=== PATIENT | female | born 1955 | race Caucasian/White ===

== ENCOUNTER 2023-08-07 12:12 | Emergency (ER) | payer OTHER ==
[~2023-08-07] VITALS: Ht 152.4 cm; Wt 65.8 kg
[2023-08-07] MEDS ORDERED: MORPHINE 4 MG INJ. 4 MG/ML VIAL IM ONE (12:30)
[2023-08-07 12:31] VITALS: BP_SYST 143; PULSE 93; RESP 16; TEMP 98.1; O2SAT 95
[2023-08-07] MEDS ORDERED: IBUP-1969 PO (14:12)
[2023-08-07] MEDS ORDERED: TRAM50TA2 PO (14:12)
[2023-08-07 19:35] VITALS: BP_SYST 143; PULSE 93; RESP 16; TEMP 98.1; O2SAT 95
== END 2023-08-07 19:35 | disposition home or self-care (01) ==
LOC: SED 12:12
DX: S83.91XA Sprain of unspecified site of right knee, initial encounter (principal); S33.5XXA Sprain of ligaments of lumbar spine, initial encounter; S70.01XA Contusion of right hip, initial encounter; W18.39XA Other fall on same level, initial encounter; Y93.89 Activity, other specified; Y92.89 Other specified places as the place of occurrence of the external cause; Y99.8 Other external cause status
CPT/HCPCS: 99284; 72100; 72170; 73564; 96372; J2270

== ENCOUNTER 2024-02-04 12:36 | Inpatient (IN) | payer OTHER ==
[~2024-02-04] VITALS: Ht 152.4 cm; Wt 56.2 kg
[~2024-02-04 12:36] MED LIST: IBUP-1969 PO; TRAM50TA2 PO
[2024-02-04 12:49] VITALS: BP_SYST 175; PULSE 77; RESP 18; TEMP 99.2; O2SAT 98
[2024-02-04 13:20] LABS: BASOPHILS # (AUTO) 0.1 K/uL (0.0-0.2); BASOPHILS % (AUTO) 0.5 % (0.0-2.0); EOSINOPHILS # (AUTO) 0.1 K/uL (0.0-0.4); EOSINOPHILS % (AUTO) 0.5 % (0.0-4.0); HEMATOCRIT 45.2 % (36-48); HEMOGLOBIN 15.2 g/dL (12.0-16.0); LYMPHOCYTES % (AUTO) 15.8 % (20.5-51.5); MEAN CORPUSCULAR HEMOGLOBIN 29 pg (27-31); MEAN CORPUSCULAR HGB CONC 34 % (32-36); MEAN CORPUSCULAR VOLUME 86 fL (79.0-98.0); MONOCYTES # (AUTO) 1.1 K/uL (0.0-1.0); MONOCYTES % (AUTO) 8.5 % (1.7-9.3); NEUTROPHILS # (AUTO) 9.3 K/uL (1.8-7.7); NEUTROPHILS % (AUTO) 74.7 % (40.0-70.0); PLATELET COUNT (AUTO) 264 K/uL (130-430); RED BLOOD CELL COUNT(AUTO) 5.27 MIL/uL (4.2-6.2); RED CELL DISTRIBUTION WIDTH 13.9 % (9.0-15.0); WHITE BLOOD COUNT (AUTO) 12.4 K/uL (4.8-10.8)
[2024-02-04] MEDS: PROMETHAZINE HCL/CODEINE 6.25-10 mg/5 mL UDC PO ONE (13:43)
[2024-02-04 13:51] LABS: INFLUENZA TYPE A Negative (NEGATIVE); INFLUENZA TYPE B NEGATIVE (NEGATIVE)
[2024-02-04 14:15] LABS: CALCIUM 8.5 mg/dL (8.4-11.0); CREATININE 0.85 mg/dL (0.55-1.30); POTASSIUM 3.6 mmol/L (3.5-5.1)
[2024-02-04] MEDS ORDERED: LOSA25TA18 PO (14:45)
[2024-02-04] MEDS ORDERED: AMLO5TAB92 PO (14:45)
[2024-02-04] MEDS ORDERED: ALEN35TA17 PO (14:45)
[2024-02-04] MEDS ORDERED: SIMV-43 PO (14:45)
[2024-02-04] MEDS ORDERED: HYDR25TA4 PO (14:45)
[2024-02-04] MEDS: DIPHENHYDRAMINE INJ 50 MG/ML VIAL IVP ONE (15:21)
[2024-02-04 15:49] VITALS: BP_SYST 143; PULSE 74; RESP 17; TEMP 97.2; O2SAT 95
[2024-02-04 15:50] VITALS: BP_SYST 143; PULSE 74; RESP 17; TEMP 97.5; O2SAT 95
[2024-02-04] MEDS ORDERED: ONDANSETRON HCL 4 MG/2 ML VIAL IVP PRN (17:30)
[2024-02-04] MEDS ORDERED: IPRATROPIUM BROM 0.5 MG/2.5 ML VIAL.NEB (ATROVENT) INH PRN (17:30)
[2024-02-04] MEDS ORDERED: ACETAMINOPHEN 325 MG TABLET PO PRN (17:30)
[2024-02-04] MEDS ORDERED: LORazepam 2 MG/ML VIAL IVP PRN (17:30)
[2024-02-04] MEDS ORDERED: ALBUTEROL SULFATE 0.083% 2.5 MG/3 ML VIAL.NEB INH PRN (17:30)
[2024-02-04] MEDS ORDERED: IBUPROFEN 600 MG TABLET PO PRN (17:30)
[2024-02-04 17:35] VITALS: BP_SYST 143; PULSE 74; O2SAT 95
[2024-02-04 20:00] VITALS: BP_SYST 132; PULSE 71; RESP 16; TEMP 97.8; O2SAT 94
[2024-02-04] MEDS: NORMAL SALINE 5 ML DISP.SYRIN IVF SCH (21:25)
[2024-02-04] MEDS: traMADol HCL HCL 50 MG TABLET (ULTRAM) PO PRN (21:25)
[2024-02-04] MEDS: SIMVASTATIN 20 MG TABLET PO SCH (21:25)
[2024-02-04] MEDS: AZITHROMYCIN 500 MG in NS 250 ML IV SCH (21:47)
[2024-02-04] MEDS: AZITHROMYCIN 500 MG/VIAL (ZITHROMAX) IV ONE (21:47)
[2024-02-05] VITALS: BP_SYST 126; PULSE 70; RESP 16; TEMP 97.9; O2SAT 96
[2024-02-05 06:52] LABS: BASOPHILS % (AUTO) 0.4 % (0.0-2.0); EOSINOPHILS # (AUTO) 0.1 K/uL (0.0-0.4); EOSINOPHILS % (AUTO) 0.6 % (0.0-4.0); HEMATOCRIT 44.4 % (36-48); HEMOGLOBIN 14.7 g/dL (12.0-16.0); LYMPHOCYTES # (AUTO) 3.5 K/uL (1.0-5.5); LYMPHOCYTES % (AUTO) 34.3 % (20.5-51.5); MEAN CORPUSCULAR HEMOGLOBIN 28 pg (27-31); MEAN CORPUSCULAR HGB CONC 33 % (32-36); MEAN CORPUSCULAR VOLUME 86 fL (79.0-98.0); MONOCYTES # (AUTO) 1.3 K/uL (0.0-1.0); MONOCYTES % (AUTO) 13.4 % (1.7-9.3); NEUTROPHILS # (AUTO) 5.2 K/uL (1.8-7.7); NEUTROPHILS % (AUTO) 51.3 % (40.0-70.0); PLATELET COUNT (AUTO) 256 K/uL (130-430); RED BLOOD CELL COUNT(AUTO) 5.17 MIL/uL (4.2-6.2); RED CELL DISTRIBUTION WIDTH 14.4 % (9.0-15.0); WHITE BLOOD COUNT (AUTO) 10.1 K/uL (4.8-10.8)
[2024-02-05 07:01] LABS: CALCIUM 8.8 mg/dL (8.4-11.0); CREATININE 0.91 mg/dL (0.55-1.30); POTASSIUM 3.9 mmol/L (3.5-5.1)
[2024-02-05 08:18] VITALS: BP_SYST 143; PULSE 77; RESP 18; TEMP 96.1; O2SAT 99
[2024-02-05] MEDS: LOSARTAN POTASSIUM 25 MG TABLET PO SCH (08:22)
[2024-02-05] MEDS: HYDROCHLOROTHIAZIDE 25 MG TABLET (HCTZ) PO SCH (08:22)
[2024-02-05] MEDS: amLODIPine BESYLATE 5 MG TABLET PO SCH (08:23)
[2024-02-05] MEDS: METHYLPREDNISOLONE SOD SUCC 40 MG/ML VIAL IVP ONE (08:23)
[2024-02-05 12:16] VITALS: BP_SYST 115; PULSE 63; RESP 18; TEMP 98.2; O2SAT 93
[2024-02-05] MEDS: METHYLPREDNISOLONE SOD SUCC 40 MG/ML VIAL IVP SCH (14:17)
[2024-02-05 15:53] VITALS: O2SAT 93
[2024-02-05 16:43] VITALS: BP_SYST 122; PULSE 61; RESP 16; TEMP 98.1; O2SAT 92
[2024-02-06] VITALS (7 sets, daily range): BP systolic 124–158; PULSE 56–76; RESP 16–18; TEMP 96.3–98.2; O2SAT 94–99
[2024-02-06 05:21] LABS: BASOPHILS % (AUTO) 0.2 % (0.0-2.0); HEMATOCRIT 42.8 % (36-48); LYMPHOCYTES # (AUTO) 2.4 K/uL (1.0-5.5); LYMPHOCYTES % (AUTO) 18.5 % (20.5-51.5); MEAN CORPUSCULAR HEMOGLOBIN 28 pg (27-31); MEAN CORPUSCULAR HGB CONC 33 % (32-36); MEAN CORPUSCULAR VOLUME 86 fL (79.0-98.0); MONOCYTES # (AUTO) 0.9 K/uL (0.0-1.0); NEUTROPHILS # (AUTO) 9.6 K/uL (1.8-7.7); NEUTROPHILS % (AUTO) 74.3 % (40.0-70.0); PLATELET COUNT (AUTO) 260 K/uL (130-430); RED CELL DISTRIBUTION WIDTH 13.7 % (9.0-15.0); WHITE BLOOD COUNT (AUTO) 12.9 K/uL (4.8-10.8)
[2024-02-06 05:25] LABS: ERYTHROCYTE SEDIMENTATION RATE 37 MM/HR (0-20)
[2024-02-06 05:58] LABS: ALANINE AMINOTRANSFERASE 16 U/L (12-78); ALBUMIN 2.8 g/dL (3.4-4.8); ANION GAP 9 (5-15); ASPARTATE AMINOTRANSFERASE < 5 U/L (10-37); CALCIUM 8.9 mg/dL (8.4-11.0); CARBON DIOXIDE 29 mmol/L (23-29); CHLORIDE 100 mmol/L (98-107); CREATININE 0.82 mg/dL (0.55-1.30); GLUCOSE 144 mg/dL (74-106); POTASSIUM 3.7 mmol/L (3.5-5.1); SODIUM SERUM 138 mmol/L (136-145); TOTAL BILIRUBIN 0.4 mg/dL (0.0-1.0); TOTAL PROTEIN, SERUM 7.2 g/dL (6.4-8.3); UREA NITROGEN, BLOOD 17 mg/dL (8-21)
[2024-02-06 06:22] LABS: GFR AFRICAN AMERICAN 89 mL/min (>90); GFR NON AFRICAN-AMERICAN 73 mL/min (>90)
[2024-02-06] MEDS ORDERED: METHYLPREDNISOLONE SOD SUCC 40 MG/ML VIAL IVP SCH (13:15)
[2024-02-06 16:28] LABS: BILIRUBIN,URINE NEGATIVE (NEGATIVE); BLOOD, URINE NEGATIVE (NEGATIVE); CLARITY/URINE CLEAR (CLEAR); COLOR,URINE YELLOW (YELLOW); GLUCOSE,URINE 1+ (NEGATIVE); KETONES,URINE NEGATIVE (NEGATIVE); LEUKOCYTE ESTERASE ,URINE NEGATIVE (NEGATIVE); NITRITE, URINE NEGATIVE (NEGATIVE); PROTEIN URINE NEGATIVE (NEGATIVE); UROBILINOGEN,URINE 0.2 (0.2-1.0)
[2024-02-06] MEDS: METHYLPREDNISOLONE SOD SUCC 40 MG/ML VIAL IVP SCH (21:38)
[2024-02-07] VITALS: BP_SYST 110; PULSE 65; RESP 17; TEMP 96.7; O2SAT 98
[2024-02-07 05:24] LABS: BASOPHILS % (AUTO) 0.1 % (0.0-2.0); HEMATOCRIT 42.6 % (36-48); HEMOGLOBIN 14.1 g/dL (12.0-16.0); LYMPHOCYTES # (AUTO) 1.8 K/uL (1.0-5.5); MEAN CORPUSCULAR HEMOGLOBIN 28 pg (27-31); MEAN CORPUSCULAR HGB CONC 33 % (32-36); MEAN CORPUSCULAR VOLUME 86 fL (79.0-98.0); MONOCYTES # (AUTO) 0.7 K/uL (0.0-1.0); MONOCYTES % (AUTO) 4.3 % (1.7-9.3); NEUTROPHILS # (AUTO) 12.9 K/uL (1.8-7.7); NEUTROPHILS % (AUTO) 83.6 % (40.0-70.0); PLATELET COUNT (AUTO) 296 K/uL (130-430); RED BLOOD CELL COUNT(AUTO) 4.98 MIL/uL (4.2-6.2); WHITE BLOOD COUNT (AUTO) 15.4 K/uL (4.8-10.8)
[2024-02-07 06:09] LABS: ALBUMIN 2.7 g/dL (3.4-4.8); CALCIUM 8.7 mg/dL (8.4-11.0); CREATININE 0.85 mg/dL (0.55-1.30); POTASSIUM 3.4 mmol/L (3.5-5.1); TOTAL BILIRUBIN 0.3 mg/dL (0.0-1.0); TOTAL PROTEIN, SERUM 6.9 g/dL (6.4-8.3)
[2024-02-07 08:00] VITALS: BP_SYST 132; PULSE 71; RESP 16; TEMP 98; O2SAT 97
[2024-02-07 10:01] VITALS: BP_SYST 132; PULSE 71; O2SAT 97
[2024-02-07 10:15] VITALS: O2SAT 97
[2024-02-07 11:36] VITALS: BP_SYST 123; PULSE 67; RESP 17; TEMP 98.6; O2SAT 95
[2024-02-07] MEDS ORDERED: METH-776 PO (12:15)
[2024-02-07] MEDS ORDERED: LEVO-62 PO (12:15)
[2024-02-07 12:38] VITALS: BP_SYST 123; PULSE 67; RESP 16; TEMP 98.6; O2SAT 95
== END 2024-02-07 13:40 | disposition home or self-care (01) | DRG 194 ==
LOC: SED 12:36 → SMU 15:02
PROVIDERS: ADMIT Preventive Medicine Preventive Medicine/Occupational Environmental Medicine; ATTEND Specialist
DX: J18.9 Pneumonia, unspecified organism (principal); E44.1 Mild protein-calorie malnutrition; J44.0 Chronic obstructive pulmonary disease with (acute) lower respiratory infection; M81.0 Age-related osteoporosis without current pathological fracture; I11.0 Hypertensive heart disease with heart failure; I50.9 Heart failure, unspecified; E78.5 Hyperlipidemia, unspecified; T38.0X5A Adverse effect of glucocorticoids and synthetic analogues, initial encounter; D72.829 Elevated white blood cell count, unspecified; Z20.822 Contact with and (suspected) exposure to COVID-19; Z88.6 Allergy status to analgesic agent; Z88.0 Allergy status to penicillin; Z79.899 Other long term (current) drug therapy; Z68.24 Body mass index [BMI] 24.0-24.9, adult; Y92.89 Other specified places as the place of occurrence of the external cause
CPT/HCPCS: 36415; 71045; 80048; 80053; 81001; 81003; 83605; 83880; 85025; 85651; 87040; 93005; 94070; 94760; 96374; 99285; J0456; J1030; J1200; J1956; J7050